=== PATIENT | male | born 1955 | race Caucasian/White ===

== ENCOUNTER 2024-03-26 07:43 | Outpatient (CLI) | payer BC ==
[2024-03-26] MEDS ORDERED: Regadenoson 0.4 MG/5 ML SYRINGE ONE (09:13)
== END 2024-03-26 07:44 | disposition home or self-care (01) ==
LOC: NM 07:43
PROVIDERS: ATTEND Internal Medicine
DX: I25.10 Atherosclerotic heart disease of native coronary artery without angina pectoris (principal)
CPT/HCPCS: 78452; 93017; A9502; J2785